=== PATIENT | female | born 1995 | race Caucasian/White ===

== ENCOUNTER 2020-12-10 23:26 | Emergency (ER) | payer OTHER, MEDICAID ==
[~2020-12-10] VITALS: Ht 175.3 cm; Wt 141.5 kg
[2020-12-10 23:44] VITALS: BP 120/81
--- NOTE | 2020-12-11 00:35 | NUR ---
ERMD ASSESSING PT IN TRIAGE AREA.
--- NOTE | 2020-12-11 01:00 | NUR ---
URINE SPECIMEN COLLECTED
[2020-12-11] MEDS ORDERED: ONDANSETRON 4 MG ODT PO ONE (01:05)
[2020-12-11] MEDS ORDERED: ONDA-24 SL (01:28)
--- NOTE | 2020-12-11 01:48 | NUR ---
BLOOD COLLECTED FOR SERUM . WALKED TO LAB.
--- NOTE | 2020-12-11 02:41 | NUR ---
SALVADOR DISCUSSING LAB RESULTS.
== END 2020-12-11 02:43 | disposition home or self-care (01) ==
LOC: MED 23:26
DX: O21.8 Other vomiting complicating pregnancy (principal); Z79.899 Other long term (current) drug therapy
CPT/HCPCS: 81025; 84703; 99283; Q0162